=== PATIENT | female | born 1980 | race Caucasian/White ===

== ENCOUNTER 2019-08-07 14:56 | Emergency (ER) | payer MEDICAID ==
[~2019-08-07] VITALS: Ht 165.1 cm; Wt 88.0 kg
[2019-08-07 15:24] VITALS: BP 118/69; Ht 165.1 cm; Wt 88.0 kg
== END 2019-08-07 16:21 | disposition home or self-care (01) ==
LOC: ED 14:56
DX: M54.5 Low back pain (principal); X50.0XXA Overexertion from strenuous movement or load, initial encounter; Y93.89 Activity, other specified; Y92.89 Other specified places as the place of occurrence of the external cause; Y99.8 Other external cause status
CPT/HCPCS: J1885